=== PATIENT | female | born 1980 | race African-American/Black ===

== ENCOUNTER 2021-05-11 18:19 | Emergency (ER) | payer OTHER, SELFPAY ==
--- NOTE | ~2021-05-11 | XR_ITS ---
XR chest 1V portable DATE: 05/11/2021 21:33 INDICATION: Congestion TECHNIQUE: Portable upright AP chest on 05/03/2021 2126 hours COMPARISON: None FINDINGS: Normal heart size. No hilar or mediastinal enlargement. No pulmonary infiltrate or consolid ation, pleural effusion or pulmonary vascular congestion or pneumothorax. IMPRESSION: No active cardiopulmonary disease Reviewed, dictated and finalized at location A.
[2021-05-11 18:27] VITALS: BP 147/87; PULSE 91; RESP 14; TEMP 36.6; O2SAT 100
--- NOTE | 2021-05-11 21:14 | ED.URI ---
HPI - URI/Sore Throat General Chief Complaint: Upper Respiratory Infection Stated Complaint: SOB Time Seen by Provider: 05/11/21 20:42 Source: patient Mode of arrival: ambulatory Limitations: no limitations History of Present Illness HPI Narrative: This is a 40-year-old female that presents to the emergency department for cold symptoms present since yesterday. Reports congestion that is causing her to have difficulty breathing. Reports sore throat and loss of sense of taste and smell. She is COVID vaccinated and boosted. Denies fever, cough, or lower extremity edema. Related Data Allergies Allergy/AdvReac Type Severity Reaction Status Date / Time Penicillins Allergy Unknown Verified 02/13/15 14:52 Review of Systems Review of Systems: CONSTITUTIONAL: Denies fever ENT: Reports rhinorrhea, congestion, sore throat RESPIRATORY: Denies cough All systems reviewed & are unremarkable except as noted in HPI and below PMFSH Past Medical History Medical History (Updated 05/11/21 @ 22:36 by Armida Chaney PA-C) No active medical problems Social History Social History (Updated 05/11/21 @ 21:16 by Armida Chaney PA-C) Smoking status: Never smoker Exam Narrative: GENERAL: Well-appearing, well-nourished, and in no acute distress. HEAD: Normocephalic, atraumatic. EYES: EOMI. ENT: Turbinates swollen and pale. Mucous membranes moist. Oropharynx without tonsillar hypertrophy exudate or other lesions. Bilateral TMs pearly moreau non-bulging. Mild tenderness to palpation of the frontal sinuses bilaterally NECK: Supple. No adenopathy or masses. CHEST: Clear to auscultation. No respiratory distress. No wheezes rales or rhonchi HEART: Regular rate and rhythm. No murmur heard. Normal peripheral pulses. EXTREMITIES: Normal range of motion. No edema. SKIN: Warm, dry, no rash. NEURO: No focal deficits. Alert and oriented x3. PSYCH: Normal mood and affect Course Vital Signs Vital signs: Vital Signs Temperature 97.9 F 05/11/21 18:27 Pulse Rate 91 05/11/21 18:27 Respiratory Rate 14 05/11/21 18:27 Blood Pressure 147/87 H 05/11/21 18:27 Pulse Oximetry 100 05/11/21 18:27 Temperature 97.9 F 05/11/21 18:27 Pulse Rate 91 03/28/22 18:27 Respiratory Rate 14 05/11/21 18:27 Blood Pressure 147/87 H 05/11/21 18:27 Pulse Oximetry 100 05/11/21 18:27 MDM - URI/Sore Throat MDM Narrative Medical decision making narrative: Patient presents to the emergency department for cold symptoms present over the last couple of days. She is afebrile and nontoxic-appearing. Influenza and COVID screens are negative. Chest x-ray without acute cardiopulmonary disease. Patient was updated on case findings. Instructed on continued care of viral infection. She is to follow-up with primary care doctor. She was given warnings to return to the ER Lab Data Attestation: I reviewed the patient's lab results. Labs: Lab Results 05/11/21 Range/Units 21:37 SARS-CoV-2 RNA (RT-PCR) Negative Influenza A Screen Negative Reference Range: Negative Influenza B Screen Negative Reference Range: Negative Imaging Data Radiologist's impression: ITS Impressions Chest X-Ray 05/11/21 21:41 IMPRESSION: No active cardiopulmonary disease Critical Care Time Critical Care Time Critical Care Time: No Discharge Plan Discharge Clinical Impression: Upper respiratory infection Qualifiers: URI type: unspecified URI Qualified Code(s): J06.9 - Acute upper respiratory infection, unspecified Patient Disposition: Home, Self-Care Condition: Stable Instructions: Viral Syndrome (ED) Additional Instructions: Return to the emergency department for worsening symptoms, or any other concerns Remain well-hydrated, get plenty of rest. Take Tylenol or Motrin [id number] for pain as need
[2021-05-11 22:28] LABS: SARS-CoV-2 RNA PCR Negative
[2021-05-11 22:48] VITALS: BP 124/83; PULSE 88; RESP 16; O2SAT 100
== END 2021-05-11 22:50 | disposition home or self-care (01) ==
PROVIDERS: Physician Assistant; Emergency Provider Emergency Medicine
DX: J06.9 Acute upper respiratory infection, unspecified (principal); Z20.822 Contact with and (suspected) exposure to COVID-19
CPT/HCPCS: 71045; 87804; 99283; C9803; U0003; U0005